=== PATIENT | male | born 1935 | race Caucasian/White ===

== ENCOUNTER 2020-08-15 21:42 | Day surgery (SDC) | payer MEDICARE, OTHER ==
[~2020-08-15] VITALS: Ht 175.2 cm; Wt 83.1 kg
[2020-08-15] MEDS ORDERED: GLUCAGON EMERGENCY 1 MG/KIT IM ONE (22:00)
--- NOTE | 2020-08-15 22:04 | ED General ---
General Chief Complaint: Foreign Body Stated Complaint: FOREIGN OBJECT IN THROAT Nursing Triage Note: Patient states that he had eaten a pot pie approximately 1 hour PARCEL POST DELIVERY. Patient states that he feels like something is stuck and points to the upper middle of the chest, just below the neck. Patient states that he tried to drink water and was unable to swallow it. Patient states that he coughed the water back up. Patient tried to drink 3 times. Patient is also unable to swallow any saliva. Patient denies having any shortness of breath or difficulty breathing at this time. Nursing Sepsis Screen: No Definite Risk Source of Information: Patient Exam Limitations: No Limitations History of Present Illness Date Seen by Provider: Aug 15, 2020 Time Seen by Provider: 21:50 Initial Comments patient feels like food is stuck in his (esophagus) since eating dinner tonight, beef pot pie. Got blocked suddenly and since then he has been spitting and unable to swallow water (after 3 attempts) as it comes back up immediately. Also unable to swallow his own saliva. Denies previous occurrence of similar episodes in the past. No other complaints, no recent illness. Denies Chest pain, soa, difficulty breathing or abdominal pain. Allergies and Home Medications Allergies Coded Allergies: No Known Drug Allergies (Unverified , 08/15/20) Patient Home Medication List Home Medication List Reviewed: Yes Review of Systems Review of Systems Constitutional: see HPI; No fever, No malaise, No weakness EENTM: no symptoms reported; No hoarseness, No mouth pain, No throat pain, No throat swelling Respiratory: no symptoms reported; No cough, No short of breath Cardiovascular: No chest pain, No edema Gastrointestinal: No abdominal pain, No constipation, No diarrhea; dysphagia; No loss of appetite, No nausea, No vomiting Musculoskeletal: No back pain, No neck pain Past Ejvlxja-Eoxhbp-Whvdiq Hx Past Med/Social Hx: Reviewed Nursing Past Med/Soc Hx Patient Social History Recent Infectious Disease Expo: No Physical Exam Vital Signs Vital Signs - First Documented 08/15/20 21:48 Temp 35.4 Pulse 102 Resp 18 B/P (MAP) 155/86 (109) Pulse Ox 98 O2 Delivery Room Air Capillary Refill : Less Than 3 Seconds Height, Weight, BMI Height: '" Weight: lbs. oz. kg; 27.00 BMI Method: General Appearance: No Apparent Distress, WD/WN HEENT: PERRL/EOMI, Normal ENT Inspection Neck: Normal Inspection, Non Tender, Supple Respiratory: Chest Non Tender, Lungs Clear Cardiovascular: Regular Rate, Rhythm, No Edema, No Gallop, No JVD Gastrointestinal: Normal Bowel Sounds, Non Tender, Soft; No Distended, No Guarding Back: Normal Inspection, No CVA Tenderness Extremity: Normal Capillary Refill, Non Tender Neurologic/Psychiatric: Alert, Oriented x3, No Motor/Sensory Deficits, Normal Mood/Affect Skin: Normal Color, Warm/Dry Progress/Results/Core Measures Suspected Sepsis Recent Fever Within 48 Hours: No Infection Criteria Present: None New/Unexplained Altered Menta: No Sepsis Screen: No Definite Risk SIRS Temperature: Pulse: 102 Respiratory Rate: 18 Blood Pressure 155 /86 Mean: 109 Results/Orders My Orders Orders - ROVENSTINEROSE DO Ed Iv/Invasive Line Start (08/15/20 21:55) Glucagon Emergency Kit (Glucagon Emergen (08/15/20 22:00) Chest 1 View Ap/Pa Only (08/15/20 21:57) Medications Given in ED Current Medications Medications Dose Ordered Sig/Isabelle Route Start Time Stop Time Status Last Admin Dose Admin Glucagon 1 mg ONCE ONCE IM 08/15/20 22:00 08/15/20 22:01 DC 08/15/20 22:03 1 MG Vital Signs/I&O 08/15/20 21:48 Temp 35.4 Pulse 102 Resp 18 B/P (MAP) 155/86 (109) Pulse Ox 98 O2 Delivery Room Air Capillary Refill : Less Than 3 Seconds Blood Pressure Mean: 109 Progress Note : Time: 22:19 Progress Note Trial of glucagon for Esophageal obstruction, failed. Still vomiting trial of small amounts of water. Discussed sending to [facility] for endoscopy to remove food obstruction. Called Dr Juares @ [phone] who requests patient come directly to the ER and he will take him straight to the OR for EGD to remove obstruction from esophagus. Talke to Dr Sheppard @ [phone] to notify that pt would be stopping temporarily in the ER on way to OR. Departure Communication (Admissions) Time/Spoke to Consulting Phy: 22:[address] Juares who will see patient for an EGD to remove obstruction. Plan for patient to be discharged to home afterward if all goes well. Impression Primary Impression: Foreign body in esophagus Qualified Codes: T18.108A - Unspecified foreign body in esophagus causing other injury, initial encounter Disposition: 30 STILL A PATIENT Condition: Stable Admissions Decision to Admit Reason: Admit from ER (General) Decision to Admit/Date: Aug 15, 2020 Time/Decision to Admit Time: 22:00 Departure-Patient Inst. Referrals: NO,LOCAL PHYSICIAN (PCP) Primary Care Physician ROSE RICHARDSON DO Aug 15, 2020 22:04
[2020-08-15] MEDS ORDERED: fentaNYL INJECTION 100 MCG/2 ML AMP ONE (23:26)
[2020-08-15] MEDS ORDERED: proPOfol 200 MG/20 ML (DIPRIVAN) VIAL IV ONE (23:26)
[2020-08-15] MEDS ORDERED: LIDOCAINE PF 2% 5 ML (XYLOCAINE) VIAL ONE (23:26)
[2020-08-15] MEDS ORDERED: SUCCINYLCHOLINE INJ 100 MG/5 ML SYR/VIAL ONE (23:27)
--- NOTE | 2020-08-15 23:42 | Consultation - Surgery ---
SAMUEL WOODY MED STUDENT 08/15/20 2342: History of Present Illness History of Present Illness Patient Consulted On(kash/time) 08/15/20 23:40 Date Seen by Provider: Aug 15, 2020 Time Seen by Provider: 23:30 History of Present Illness Esophageal obstruction/ food bolus - plan to perform EGD Allergies and Home Medications Allergies Coded Allergies: No Known Drug Allergies (Unverified , 08/15/20) Home Medications Pantoprazole Sodium 40 Mg Tablet.dr, 40 MG PO DAILY Prescribed by: MITESH JUARES on 08/16/20116 Sucralfate 1 Gm/10 Ml Oral.susp, 1 GM PO QID Prescribed by: MITESH JUARES on 08/16/20116 Past Hdbpnip-Agcqtz-Uiypfx Hx Patient Social History Smoking Status: Never a Smoker Surgeries History of Surgeries: Yes (Hernia Repair) Respiratory History of Respiratory Disorde: No Cardiovascular History of Cardiac Disorders: Yes Cardiac Disorders: Hypertension Neurological History of Neurological Disord: No Genitourinary History of Genitourinary Disor: No Gastrointestinal History of Gastrointestinal Di: No Musculoskeletal History of Musculoskeletal Dis: No Endocrine History of Endocrine Disorders: No HEENT History of HEENT Disorders: No Cancer History of Cancer: No Psychosocial History of Psychiatric Problem: No Integumentary History of Skin or Integumenta: No Physical Exam-General Problems Physical Exam Vital Signs Vital Signs - First Documented 08/15/20 21:48 Temp 35.4 Pulse 102 Resp 18 B/P (MAP) 155/86 (109) Pulse Ox 98 O2 Delivery Room Air Capillary Refill : Less Than 3 Seconds MITESH JUARES D DO 08/16/20 0130: History of Present Illness History of Present Illness History of Present Illness 84 year old male ate pot pie around 830 pm Started having nausea and vomiting. Pain midsternum about 6/10. Can't swallow secretions. Never had this before. Went to ER. Tried Glucagon without success. No other complaints Denies any heartburn symptoms previously Allergies and Home Medications Allergies Coded Allergies: No Known Drug Allergies (Unverified , 08/15/20) Home Medications Pantoprazole Sodium 40 Mg Tablet.dr, 40 MG PO DAILY Prescribed by: MITESH JUARES on 08/16/20116 Sucralfate 1 Gm/10 Ml Oral.susp, 1 GM PO QID Prescribed by: MITESH JUARES on 08/16/20 0117 Patient Home Medication List Home Medication List Reviewed: Yes Past Yphwnev-Iczoph-Nwvoxn Hx Reviewed Nursing Assessment Reviewed/Agree w Nursing PMH: Yes Family Medical History Significant Family History: No Pertinent Family Hx Review of Systems-General Constitutional: No chills, No weakness EENTM: No blurred vision, No double vision Respiratory: No cough, No dyspnea on exertion Cardiovascular: No chest pain, No edema Gastrointestinal: dysphagia, nausea, vomiting Genitourinary: No decreased output, No discharge Musculoskeletal: No back pain, No joint pain Skin: No change in color, No change in hair/nails Psychiatric/Neurological: Denies Anxiety, Denies Depressed, Denies Emotional Problems All Other Systems Reviewed Negative Unless Noted: Yes (Negative excepted noted.) Physical Exam-General Problems Physical Exam General Appearance: WD/WN, no apparent distress HEENT: PERRL/EOMI, normal ENT inspection Neck: supple Respiratory: chest non-tender, no respiratory distress, no accessory muscle use Cardiovascular: regular rate, rhythm, no JVD Gastrointestinal: non tender, soft Rectal: deferred Back: normal inspection, no CVA tenderness Extremities: normal range of motion, non-tender, normal inspection, no pedal edema, no calf tenderness Neurologic/Psychiatric: no motor/sensory deficits, alert, normal mood/affect, oriented x 3 Skin: normal color, warm/dry Lymphatic: no adenopathy Assessment/Plan Assessment/Plan Assessment/Plan esophageal obstruction- food bolus nausea and vomiting patient understands risks and benefits of egd and all other indicated procedures and wishes to proceed. to Endoscopy to perform. Will do general anesthesia to protect airway. Supervisory-Addendum Brief Verification & Attestation Participated in pt care: history, MDM, physical Personally performed: exam, history, MDM, supervision of care Care discussed with: Medical Student Procedures: n/a Results interpretation: Verified all documentation Verification and Attestation of Medical Student E/M Service A medical student performed and documented this service in my presence. I reviewed and verified all information documented by the medical student and made modifications to such information, when appropriate. I personally performed the physical exam and medical decision making. Mitesh Juares, Aug 16, 2020,01:30 SAMUEL WOODY MED STUDENT Aug 15, 2020 23:42 MITESH JUARES DO Aug 16, 2020 01:30
[2020-08-15] MEDS ORDERED: NS IV 500 ML 500 ML ONE (23:43)
[2020-08-16] VITALS (8 sets, daily range): BP systolic 122–139; BP diastolic 68–82
[2020-08-16] MEDS ORDERED: NS IV 500 ML 500 ML ONE (00:25)
[2020-08-16] MEDS ORDERED: PHENYLEPHRINE 100 MCG/ML 10 ML (ANESTHESIA) SYR ONE (00:27)
[2020-08-16] MEDS ORDERED: ROCURONIUM 10 MG/ML 5 ML SYRINGE IV ONE (00:27)
[2020-08-16] MEDS ORDERED: SEVOFLURANE (ULTANE) 15 ML INHAL SOLN ONE ×2 (00:27→01:04)
[2020-08-16] MEDS ORDERED: ONDANSETRON 4 MG/2 ML (SDV) Z0FRAN ONE (00:59)
[2020-08-16] MEDS ORDERED: GLYCOPYRROLATE 0.2 MG/ML (ROBINUL) 2 ML VIAL ONE (00:59)
[2020-08-16] MEDS ORDERED: NEOSTIGMINE 3 MG/3 ML VIAL ONE (01:00)
[2020-08-16] MEDS ORDERED: PANT40TA2 PO (01:17)
[2020-08-16] MEDS ORDERED: SUCR1ORA5 PO (01:17)
--- NOTE | 2020-08-16 01:24 | Discharge Inst-Simple/Standard ---
Discharge Inst-Standard Discharge Medications New, Converted or Re-Newed RX: Transmitted to Pharmacy Patient Instructions/Follow Up Plan of Care/Instructions/FU: Mor appointment 1 week. Call the office to make an apointment. Activity as Tolerated: Yes Discharge Diet: Liquid Diet (Liquid diet for 3 days, use ensure or boost to help with nutrition. If no issues after 3 days can advance to soft diet (easy to digest foods) until seen in office.) MITESH BRIAN DO Aug 16, 2020 01:22
--- NOTE | 2020-08-16 01:26 | Anesthesia-General Post-Op ---
General Patient Condition Mental Status/LOC: Same as Preop Cardiovascular: Satisfactory Nausea/Vomiting: Absent Respiratory: Satisfactory Pain: Controlled Complications: Absent Post Op Complications Complications None Follow Up Care/Instructions Patient Instructions None needed. Anesthesia/Patient Condition Patient Condition Patient is doing well, no complaints, stable vital signs, no apparent adverse anesthesia problems. No complications reported per nursing. MACI LADD CRNA Aug 16, 2020 01:26
[2020-08-16] MEDS ORDERED: ONDANSETRON 4 MG/2 ML (SDV) Z0FRAN IVP PRN (01:30)
[2020-08-16] MEDS ORDERED: fentaNYL INJECTION 100 MCG/2 ML AMP IVP ONE (01:30)
--- NOTE | 2020-08-16 01:34 | Progress Note-Post Operative ---
Post-Operative Progess Note Surgeon (s)/Clerical Clerk (s) Surgeon MITESH BRIAN DO Clerical Clerk: na Pre-Operative Diagnosis food bolus esophageal obstruction Post-Operative Diagnosis same and ulceration distal esophagus Procedure & Operative Findings Date of Procedure 08/16/20 Procedure Performed/Findings egd c removal of esophageal food bolus Anesthesia Type general Estimated Blood Loss Estimated blood loss (mL): minimal Specimens/Packing Specimens Removed na MITESH BRIAN DO Aug 16, 2020 01:34
--- NOTE | 2020-08-16 01:36 | ED GI ---
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 Patient states that he feels like something is stuck and points to the upper middle of the chest, just below the neck. Patient states that he tried to drink water and was unable to swallow it. Patient states that he coughed the water back up. Patient tried to drink 3 times. Patient is also unable to swallow any saliva. Patient denies having any shortness of breath or difficulty breathing at this time. Sepsis Screen: No Definite Risk Source of Information: Patient History of Present Illness Date Seen by Provider: Aug 15, 2020 Time Seen by Provider: 23:24 Initial Comments PT ARRIVES VIA [facility] IN TRANSFER FROM [place]. PT WITH ESOPHAGEAL OBSTRUCTION SYMPTOMS BEGAN AROUND 2029 TONIGHT, WHILE EATING A POT PIE, AND FOOD GOT STUCK PT HAS NOT BEEN ABLE TO SWALLOW ANYTHING, INCLUDING SALIVA SINCE THEN NO SIGNIFICANT PAIN NO DIFFICULTY BREATHING NO RELIEF WITH GLUCAGON GIVEN AT [facility]. NO HISTORY OF SIMILAR DR. BRIAN HAD BEEN CONTACTED PRIOR TO PT'S ARRIVAL BY [facility] AND I CONTACTED HIM AT 2320 WHEN EMS REPORT WAS RECEIVED. LAB DIRECTOR WAS CONTACTED BY AUDIT MACHINE OPERATOR PRIOR TO ARRIVAL. 2324-DR. BRIAN IS HERE AND HAS ASSUMED CARE OF PT. TO GO DIRECTLY TO ENDOSCOPY SUITE PCP: NARESH RUTH Allergies and Home Medications Allergies Coded Allergies: No Known Drug Allergies (Unverified , 08/15/20) Home Medications Pantoprazole Sodium 40 Mg Tablet.dr, 40 MG PO DAILY Prescribed by: MITESH BRIAN on 08/16/20116 Sucralfate 1 Gm/10 Ml Oral.susp, 1 GM PO QID Prescribed by: MITESH BRIAN on 08/16/20116 Patient Home Medication List Home Medication List Reviewed: Yes Review of Systems Review of Systems Constitutional: no symptoms reported; No chills, No weakness Respiratory: Denies Shortness of Air Cardiovascular: Denies Chest Pain Gastrointestinal: See HPI Musculoskeletal: No back pain, No joint pain Skin: No change in color, No change in hair/nails Psychiatric/Neurological: Denies Anxiety, Denies Depressed, Denies Emotional Problems Past Urocnjz-Kzfucd-Sjjmrf Hx Past Med/Social Hx: Reviewed Nursing Past Med/Soc Hx Patient Social History Alcohol Use: Denies Use Smoking Status: Never a Smoker Recent Infectious Disease Expo: No Past Medical History Surgeries: Yes (Hernia Repair) Abdominal Respiratory: No Cardiac: Yes Hypertension Neurological: No Genitourinary: No Gastrointestinal: Yes Abdominal Hernia Musculoskeletal: No Endocrine: No HEENT: No Cancer: No Psychosocial: No Integumentary: No Family Medical History No Pertinent Family Hx Physical Exam Vital Signs Vital Signs - First Documented 08/15/20 21:48 Temp 35.4 Pulse 102 Resp 18 B/P (MAP) 155/86 (109) Pulse Ox 98 O2 Delivery Room Air Capillary Refill : Less Than 3 Seconds Height/Weight/BMI Height: '" Weight: lbs. oz. kg; 27.00 BMI Method: General Appearance: WD/WN, no apparent distress, other (PT VERY TALKATIVE AND TALKS AT LENGTH WITHOUT DIFFICULTY. PT IS NOT DROOLING AND IS ABLE TO HANDLE SALIVA AT THIS TIME, AND IS NOT IN ANY DISCOMFORT OR DISTRESS. ) Progress/Results/Core Measures Results/Orders Medications Given in ED Current Medications Medications Dose Ordered Sig/Isabelle Route Start Time Stop Time Status Last Admin Dose Admin Glucagon 1 mg ONCE ONCE IM 08/15/20 22:00 08/15/20 22:01 DC 08/15/20 22:03 1 MG Vital Signs/I&O 08/15/20 08/15/20 08/15/20 21:48 23:23 23:46 Temp 35.4 36.3 36.2 Pulse 102 100 95 Resp 18 18 18 B/P (MAP) 155/86 (109) 200/113 (142) 178/78 Pulse Ox 98 94 99 O2 Delivery Room Air Room Air Room Air Blood Pressure Mean: 142 Departure Impression Primary Impression: Foreign body in esophagus Qualified Codes: T18.108A - Unspecified foreign body in esophagus causing other injury, initial encounter Disposition: 30 STILL A PATIENT Condition: Stable Admissions Decision to Admit Reason: Admit from ER (General) Decision to Admit/Date: Aug 15, 2020 Time/Decision to Admit Time: 22:00 Departure-Patient Inst. Referrals: MALLORY JAMES MD (PCP) Primary Care Physician Patient Instructions: Foreign Body, Swallowed, Adult (DC), Removal of Foreign Body, Swallowed, Adult Scripts Pantoprazole Sodium (Protonix) 40 Mg Tablet.dr 40 MG PO DAILY, #30 TAB 2 Refills Prov: MITESH BRIAN DO 08/16/20 Sucralfate (Carafate) 1 Gm/10 Ml Oral.susp 1 GM PO QID, #120 ML 2 Refills Prov: MITESH BRIAN DO 08/16/20 CAITLIN PENA DO Aug 16, 2020 01:36
--- NOTE | 2020-08-16 03:35 | OPERATIVE REPORT ---
DATE OF SERVICE: 08/16/2020 PREOPERATIVE DIAGNOSES: Food bolus, esophageal obstruction. POSTOPERATIVE DIAGNOSIS: Food bolus, esophageal obstruction and ulceration of the distal esophagus. PROCEDURE: EGD with removal of the esophagus with food bolus. SURGEON: Mitesh Juares DO ANESTHESIA: General. ESTIMATED BLOOD LOSS: Minimal. COMPLICATIONS: None. INDICATIONS: The patient is an 84-year-old male with food bolus in the distal esophagus. He understands risks and benefits of procedure and wished to proceed with procedure. Consent was signed in the chart. DESCRIPTION OF PROCEDURE: The patient was taken to the endoscopy suite, placed in the supine position. Scope was inserted in the mouth into the esophagus, which then encountered significant fluid and significant food burden approximately two thirds of the distal esophagus. This was then suctioned and then a Oneil Net was then continued to be used to remove food particulate withdrawing and then reinserting the scope and repeating. Once in the distal esophagus little bit of bleeding was present and noting ulceration of the distal esophagus. Scope was able to be passed through the distal esophagus into the stomach. Scope was then slowly retracted back again noting ulceration and a slight narrowing of the distal esophagus at the GE junction. Scope was then continuously slowly retracted back until completely removed, noting no other pathology. The patient tolerated procedure well without any complications. He was taken to recovery room in stable condition. RECOMMENDATIONS: The patient started on Carafate 1 gram four times a day and Protonix 40 mg daily. The patient was instructed to stay on liquid diet for 3 days and then advance to a soft diet until seen in the office in approximately one week. Any issues before that be seen at that time. The patient will need repeat endoscopy to reevaluate the area of ulceration and stricture. We would do this in approximately 4 to 6 weeks if the patient can tolerate. Job ID: [id number] DocumentID: [id number] Dictated Date: 08/16/2020 01:48:17 Assembly Machine Set Up Mechanic Date: 08/16/2020 03:34:19 Dictated By: MITESH JUARES DO
--- NOTE | 2020-08-16 07:25 | Diagnostic Imaging Report ---
EXAMINATION: Chest radiograph, portable AP view. DATE: 08/15/2020 10:07 PM INDICATION: 84-year-old male, evaluation for esophageal obstruction. COMPARISON: None. FINDINGS: Heart size and mediastinal contours are unremarkable. There is no identified pneumothorax. There is no large pleural effusion. There is no identified pneumomediastinum. There is no identified focal airspace consolidation. There is no identified radiopaque foreign body. IMPRESSION: 1. No identified radiopaque foreign body or pneumomediastinum. 2. No identified acute cardiopulmonary abnormality. Dictated by: Dictated on workstation # [id number]
== END 2020-08-16 02:50 ==
LOC: ER FS 21:47 → ENDO 21:48 → ER 23:48 → ENDO 08-16 00:10
PROVIDERS: ATTEND Surgery
DX: T18.128A Food in esophagus causing other injury, initial encounter (principal); K22.10 Ulcer of esophagus without bleeding; K22.2 Esophageal obstruction
CPT/HCPCS: 71045; 96374

== ENCOUNTER → 2020-09-08 | Outpatient (CLI) | payer MEDICARE, OTHER ==
[~2020-09-08] MED LIST: BARIUM for suspension 96% w/w (Vanilla Silq Medium Density) PO ONE; BARIUM for suspension 98% w/w (Vanilla Silq High Density) PO ONE; PANT40TA2 PO; SUCR1ORA5 PO
--- NOTE | 2020-09-08 14:01 | Diagnostic Imaging Report ---
Indication: Possible esophageal stricture. Patient had episode of food getting stuck in the esophagus recently requiring endoscopy. Patient ingested effervescent crystals as well as thin and thick barium and imaging of the esophagus was performed in multiple obliquities. A total of 1 minute 7 seconds of fluoroscopic time was utilized. There are numerous tertiary contractions present with multiple swallows. No definite esophageal stricture was identified. No esophageal mass was identified. There is no evidence of perforation or extravasation of ingested contrast. No gastroesophageal reflux was demonstrated but patient does have a small to moderate sliding-type hiatal hernia. 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 No significant stricture or mass is identified. There is a sliding-type hiatal hernia. Dictated by: Dictated on workstation # [id number]
== END ==
LOC: RAD 12:00
PROVIDERS: ATTEND Surgery
DX: K22.4 Dyskinesia of esophagus (principal); K44.9 Diaphragmatic hernia without obstruction or gangrene
CPT/HCPCS: 74220